=== PATIENT | female | born 1940 | race Two or more races ===

== ENCOUNTER 2018-02-24 18:10 | Inpatient (IN) | payer MEDICARE, MEDICAID ==
[~2018-02-24] VITALS: Ht 154.9 cm; Wt 59.9 kg
--- NOTE | 2018-02-24 18:20 | NUR ---
PATIENT TO ED DUE TO LEFT HIP PAIN SP FALL. PATIENT IS CO 8/10 PAIN. UNABLE TO MOVE LEFT LEG DT PAIN. VSS
[2018-02-24 19:21] LABS: BASOPHILS % (AUTO) 0.5 % (0.0-2.0); EOSINOPHILS % (AUTO) 0.9 % (0.0-6.0); HEMATOCRIT 36 % (33-45); HEMOGLOBIN 11.8 g/dL (11.5-14.8); LYMPHOCYTES # (AUTO) 0.9 /CMM (0.8-4.8); LYMPHOCYTES % (AUTO) 10.6 % (20.0-44.0); MEAN CORPUSCULAR HGB CONC 33 g/dl (31.0-36.0); MEAN CORPUSCULAR VOLUME 79 fL (82-100); MONOCYTES # (AUTO) 0.4 /CMM (0.1-1.30); MONOCYTES % (AUTO) 4.4 % (2.0-12.0); NEUTROPHILS # (AUTO) 7.1 /CMM (1.8-8.9); NEUTROPHILS % (AUTO) 83.6 % (43.0-81.0); PLATELET COUNT (AUTO) 397 /CMM (150-450); RDW COEFFICIENT OF VARIATION 14.4 (11.5-15.0); WHITE BLOOD COUNT (AUTO) 8.5 K/uL (4.3-11.0)
--- NOTE | 2018-02-24 19:30 | NUR ---
CALLED NURSING STEEL WOOL MACHINE OPERATOR AND REQUESTED A MED SURG BED FOR THIS PT.
[2018-02-24 19:32] LABS: CALCIUM, SERUM 9.1 mg/dL (8.5-10.1); CARBON DIOXIDE 28 mmol/L (21-32); CHLORIDE 105 mmol/L (98-107); CREATININE 0.9 mg/dL (0.6-1.3); GLUCOSE 135 mg/dL (74-106); POTASSIUM 3.7 mmol/L (3.5-5.1); SODIUM SERUM 141 mmol/L (136-145); UREA NITROGEN, BLOOD 13 mg/dL (7-18)
[2018-02-24 19:35] LABS: INR 0.97 (0.85-1.15)
--- NOTE | 2018-02-24 19:58 | NUR ---
CALLED [facility] AND A PAGE WAS SENT OUT TO DR ROTH
[2018-02-24 20:00] VITALS: BP 178/86
--- NOTE | 2018-02-24 20:00 | NUR ---
RN NOTES RECEIVED PT. FROM ER WITH DX OF GROUND LEVEL FALL, A/OX4, BENGALI SPEAKING, DAUGHTER AT BEDSIDE, ADMISSION INSTRUCTION WAS GIVEN, CALL LIGHT WITHIN REACH, [id number], CONTINUE TO MONITOR Addendum: 02/25/18 at 0535 by NURY GIFFORD RN RIGHT TIME 2100
--- NOTE | 2018-02-24 20:02 | NUR ---
PT IS ASSIGNED TO MED/SURG RM#: [id number], PT IS DIAGNOSED WITH LEFT HIP FRACTURE, AND DR ROTH IS THE ACCEPTING MD
--- NOTE | 2018-02-24 20:17 | NUR ---
REPORT GIVEN TO PATRICK ARRINGTON FOR TIFFANIE
--- NOTE | 2018-02-24 20:45 | NUR ---
PATIENT TRANSPORTED TO [place]
[2018-02-24] MEDS ORDERED: Z GUARD REMEDY 2 OZ OINT TP PRN (21:00)
[2018-02-24] MEDS ORDERED: MAGNESIUM HYDROXIDE 30 ML UDC PO PRN (21:00)
[2018-02-24] MEDS ORDERED: MAG HYDROX/AL HYDROX/SIMETH 30 ML UDC PO PRN (21:00)
[2018-02-24] MEDS ORDERED: ACETAMINOPHEN 325 MG TABLET PO PRN (21:00)
[2018-02-24] MEDS ORDERED: MORPHINE SULFATE INJ 2 MG/ML DISP.SYRIN IV PRN (21:00)
[2018-02-24] MEDS ORDERED: ZOLPIDEM TARTRATE 5 MG TABLET PO PRN (21:00)
[2018-02-24] MEDS ORDERED: ONDANSETRON HCL/PF 4 MG/2 ML VIAL IVP PRN (21:00)
[2018-02-24] MEDS: HYDROCODONE/APAP 5/325MG 1 EACH TABLET PO PRN (22:40)
--- NOTE | 2018-02-24 22:40 | NUR ---
RN NOTES COMPLANED OF LEFT HIP PAIN0 NOROC 5/325MG PO GIVEN ORDERED, V/S STABLE
[2018-02-24] MEDS: IV NS 0.9% 1,000 ML IV PRN (22:57)
--- NOTE | 2018-02-25 06:10 | NUR ---
RN NOTES NILDA ONEAL, CALLED AND GAVE TELEPHONE ORDER FOR PT TO HAVE A BREAKFAST TODAY AND AND TO GET A CONSENT FOR LEFT HIP SURGERY , ORDER NOTED AND CARRIED OUT
--- NOTE | 2018-02-25 07:00 | NUR ---
RN NOTES AWAKE, DAUGHTER CAME , DENIES PAIN, NO SOB, MORNING CARE RENDERED, CALL LIGHT WITHIN REACH, [id number], PT. NEEDS ATTENDED
--- NOTE | 2018-02-25 07:30 | NUR ---
MS/RN Patient received Patient received from assistant shift supervisor. A/O X4 Lao speaking with a little Danish, daughter at bedside providing further translation. All needs attended, time allowed for all questions and concerns to be addressed. Can eat and drink up to 8a and then NPO for surgery with tentative schedule set for 5p. Call light within reach, will continue to monitor and ensure safety.
[2018-02-25 08:00] VITALS: BP 149/84
--- NOTE | 2018-02-25 08:00 | NUR ---
MS/RN NPO Patient now NPO, for surgery this afternoon at 5p.
[2018-02-25 08:10] VITALS: BP 149/84
[2018-02-25] MEDS ORDERED: CYAN100096 PO (08:47)
[2018-02-25] MEDS ORDERED: MULT-24 PO (08:47)
[2018-02-25] MEDS ORDERED: MAGN64TA13 PO (08:47)
--- NOTE | 2018-02-25 09:45 | NUR ---
MS/RN Consent Patient consented for left hip intramedullary rodding.
[2018-02-25 09:47] LABS: CALCIUM, SERUM 8.3 mg/dL (8.5-10.1); CARBON DIOXIDE 26 mmol/L (21-32); CHLORIDE 108 mmol/L (98-107); CREATININE 0.8 mg/dL (0.6-1.3); GLUCOSE 94 mg/dL (74-106); PHOSPHORUS 3.1 mg/dL (2.5-4.9); POTASSIUM 3.7 mmol/L (3.5-5.1); SODIUM SERUM 143 mmol/L (136-145); UREA NITROGEN, BLOOD 15 mg/dL (7-18)
[2018-02-25 09:49] LABS: IRON, SERUM 50 ug/dl (50-175); THYROID STIMULATING HORMONE 5.012 uIU/mL (0.358-3.74); TOTAL IRON BINDING CAPACITY 317 ug/dl (250-450)
[2018-02-25 09:53] LABS: BASOPHILS % (AUTO) 0.7 % (0.0-2.0); EOSINOPHILS % (AUTO) 5.3 % (0.0-6.0); HEMATOCRIT 31 % (33-45); HEMOGLOBIN 10.5 g/dL (11.5-14.8); LYMPHOCYTES # (AUTO) 1.3 /CMM (0.8-4.8); LYMPHOCYTES % (AUTO) 19.6 % (20.0-44.0); MEAN CORPUSCULAR HGB CONC 34 g/dl (31.0-36.0); MEAN CORPUSCULAR VOLUME 79 fL (82-100); MONOCYTES # (AUTO) 0.6 /CMM (0.1-1.30); NEUTROPHILS # (AUTO) 4.4 /CMM (1.8-8.9); NEUTROPHILS % (AUTO) 65.4 % (43.0-81.0); PLATELET COUNT (AUTO) 351 /CMM (150-450); RDW COEFFICIENT OF VARIATION 13.9 (11.5-15.0); RED BLOOD CELL COUNT(AUTO) 3.96 MIL/uL (4.0-5.2); WHITE BLOOD COUNT (AUTO) 6.7 K/uL (4.3-11.0)
--- NOTE | 2018-02-25 10:00 | NUR ---
MS/RN S/B Dr Rai Seen by Dr Rai - defer neuroimaging for now.
--- NOTE | 2018-02-25 11:12 | NUR ---
MS/RN Refusing surgery Called to room by patient, stating that she now does not want surgery. Feels that her hip is not fractured and all she needs is a heating pad and massage. Dr Landin and Mita Coe paged to inform.
[2018-02-25] MEDS: IV NS 0.9% 1,000 ML IV PRN (12:13)
--- NOTE | 2018-02-25 13:35 | NUR ---
MS/RN S/B Dr Langford Seen by Dr Langford - patient is cleared for any surgical intervention.
[2018-02-25 16:00] VITALS: BP 165/80
--- NOTE | 2018-02-25 17:44 | NUR ---
MS/RN S/B Jarocho Nix Seen by Jarocho - awaiting surgery.
[2018-02-25] MEDS ORDERED: BACITRACIN 50000 UNITS/VIAL ONE ×2 (19:24→20:16)
[2018-02-25] MEDS ORDERED: BUPIVACAINE 0.25% 75 MG/30 ML VIAL ONE (20:17)
[2018-02-25] MEDS ORDERED: KETOROLAC TROMETHAMINE INJ 30 MG/ML VIAL ONE (21:15)
[2018-02-25] MEDS ORDERED: FENTANYL PF 100MCG/2ML AMPUL ONE (21:16)
[2018-02-25] MEDS ORDERED: LABETALOL HCL IV 100MG VIAL ONE (21:26)
[2018-02-25 22:35] VITALS: BP 152/71
--- NOTE | 2018-02-25 22:35 | NUR ---
RN NOTES RECEIVED PT FROM OR, S/P LEFT HIP INTRAMEDULLARY RODDING BY DR. LARA, PT IS A/OX4, HEBREW SPEAKING, DRESSING ON THE LEFT HIP DRY AND INTACT, DENIES PAIN AT THIS TIME, NO SOB, V/S IS STABLE,RESUMED PRE-OPS MEDS PER DR. LARA, ORDER NOTED AND CARRIED OUT, WILL CONTINUE TO MONITOR
[2018-02-25 23:04] VITALS: BP 143/79
--- NOTE | 2018-02-25 23:30 | NUR ---
RN NOTES DAUGHTER EBONY CAME AND STAYED WITH THE PT.
[2018-02-26] MEDS ORDERED: CEFAZOLIN 1 GM ONE (04:56)
[2018-02-26] MEDS ORDERED: D5W IV SCH (05:00)
[2018-02-26] MEDS ORDERED: CEFAZOLIN IV SCH (05:00)
[2018-02-26] MEDS: CEFAZOLIN 1 GM in IV D5W 50 ML IV SCH ×3 (05:20→20:57)
[2018-02-26 06:42] LABS: CARBON DIOXIDE 24 mmol/L (21-32); CHLORIDE 107 mmol/L (98-107); CREATININE 0.7 mg/dL (0.6-1.3); GLUCOSE 149 mg/dL (74-106); SODIUM SERUM 141 mmol/L (136-145); UREA NITROGEN, BLOOD 12 mg/dL (7-18)
[2018-02-26 06:49] LABS: BASOPHILS % (AUTO) 0.4 % (0.0-2.0); EOSINOPHILS % (AUTO) 0.2 % (0.0-6.0); HEMATOCRIT 28 % (33-45); HEMOGLOBIN 9.3 g/dL (11.5-14.8); LYMPHOCYTES # (AUTO) 0.8 /CMM (0.8-4.8); LYMPHOCYTES % (AUTO) 8.7 % (20.0-44.0); MEAN CORPUSCULAR HGB CONC 33 g/dl (31.0-36.0); MEAN CORPUSCULAR VOLUME 80 fL (82-100); MONOCYTES # (AUTO) 0.8 /CMM (0.1-1.30); NEUTROPHILS # (AUTO) 7.6 /CMM (1.8-8.9); NEUTROPHILS % (AUTO) 81.7 % (43.0-81.0); PLATELET COUNT (AUTO) 290 /CMM (150-450); RDW COEFFICIENT OF VARIATION 15.2 (11.5-15.0); RED BLOOD CELL COUNT(AUTO) 3.54 MIL/uL (4.0-5.2); WHITE BLOOD COUNT (AUTO) 9.3 K/uL (4.3-11.0)
--- NOTE | 2018-02-26 07:00 | NUR ---
RN NOTES AWAKE, DENIES PAIN AT THIS TIME, MORNING CARE , DAUGHTER AT BEDSIDE, IV LINE PATENT NO REDNESS OR SWOLLEN, CALL LIGHT WITHIN REACH, [id number], PT. NEEDS ATTENDED
--- NOTE | 2018-02-26 07:20 | NUR ---
RN NOTES PATIENT A/OX4, WELSH SPEAKING, PATIENT FEELS HUNGRY, AND ASSURED HER BREAKFAST WILL BE SERVED SOON. PIV PATENT AND INTACT, FLUSHES WELL. PATIENT DENIES PAIN AT THIS TIME. BREATHING EVEN AND UNLABORED, NO SOB NOTED. NEEDS ATTENDED AND MET, CALL LIGHT WITHIN REACH, WILL CONTINUE TO MONITOR.
[2018-02-26] MEDS: HYDROCODONE/APAP 5/325MG 1 EACH TABLET PO PRN (08:24)
[2018-02-26 08:38] VITALS: BP 121/67
--- NOTE | 2018-02-26 11:00 | NUR ---
RN NOTES PATIENT SEEN BY PHYSICAL THERAPY, PATIENT ABLE TO TOLERATE THERAPY AND WALKED WITH A WALKER WITH NO COMPLAINTS.
--- NOTE | 2018-02-26 15:30 | NUR ---
RN NOTES PATIENT SEEN BY NILDA CASE, NO NEW ORDERS NOTED. PATIENT IS IN NO DISTRESS, DENIES PAIN OR DISCOMFORT, ASSISTED WITH ADLS, TURNED AND REPOSITIONED PATIENT PERMITS, NEEDS ATTENDED AND MET, CALL LIGHT WITHIN REACH, WILL CONTINUE TO MONITOR.
[2018-02-26 16:13] VITALS: BP 107/71
--- NOTE | 2018-02-26 19:00 | NUR ---
MS RN NOTES RECEIVE PT IN BED A/O X3 , NO S/S OF DISTRESS, STABLE, SAFETY MEASURES IN PLACE, CALL LIGHT WITHIN REACH, WILL CONTINUE TO MONITOR
--- NOTE | 2018-02-26 19:17 | NUR ---
RN NOTES PATIENT A/OX3, BREATHING EVEN AND UNLABORED, NO SOB NOTED, IN ROOM AIR WITH SPO2 98%. PATIENT ASSISTED WITH TURNING AND REPOSITIONING, SKIN KEPT CLEAN AND DRY, DENIES PAIN AT THIS TIME, NEEDS ATTENDED AND MET. CALL LIGHT WITHIN REACH, WILL ENDORSE TO HAT FORMING MACHINE OPERATOR FOR TIFFANIE.
[2018-02-26 20:00] VITALS: BP 123/61
[2018-02-26] MEDS: ENOXAPARIN SODIUM 40 MG/0.4 ML DISP.SYRIN SQ SCH (20:58)
[2018-02-26] MEDS ORDERED: ENOXAPARIN SODIUM 40 MG/0.4 ML DISP.SYRIN SQ SCH (22:30)
[2018-02-27] VITALS (8 sets, daily range): BP systolic 98–131; BP diastolic 56–90
[2018-02-27 06:35] LABS: BASOPHILS % (AUTO) 0.6 % (0.0-2.0); EOSINOPHILS % (AUTO) 3.2 % (0.0-6.0); HEMATOCRIT 26 % (33-45); HEMOGLOBIN 8.4 g/dL (11.5-14.8); LYMPHOCYTES # (AUTO) 1.8 /CMM (0.8-4.8); MEAN CORPUSCULAR HGB CONC 33 g/dl (31.0-36.0); MEAN CORPUSCULAR VOLUME 80 fL (82-100); MONOCYTES # (AUTO) 0.9 /CMM (0.1-1.30); MONOCYTES % (AUTO) 11.4 % (2.0-12.0); NEUTROPHILS # (AUTO) 4.9 /CMM (1.8-8.9); NEUTROPHILS % (AUTO) 61.8 % (43.0-81.0); PLATELET COUNT (AUTO) 290 /CMM (150-450); RDW COEFFICIENT OF VARIATION 15.2 (11.5-15.0); RED BLOOD CELL COUNT(AUTO) 3.23 MIL/uL (4.0-5.2); WHITE BLOOD COUNT (AUTO) 7.9 K/uL (4.3-11.0)
--- NOTE | 2018-02-27 06:35 | NUR ---
MS RN NOTES PT ASLEEP COMFORTABLY IN BED AND EASILY AWAKEN HEAD OF BED ELEVATED FOR BETTER LUNG EXPANSION AND GOOD CIRCULATION. TOLERATING ROOM AIR 98% NOT IN RESPIRATORY DISTRESS. STABLE CONDITION. NO ACUTE CHANGES THROUGHOUT THE SHIFT. PT ASSISTED REPOSITION AND TURNING. PT KEPT CLEAN AND DRY AND COMFORT. NURSING CARE RENDERED. NEEDS ATTENDED AND ANTICIPATED. ON LOW BED TO ENSURE SAFETY, CALL LIGHT WITHIN REACH, WILL ENDORSE TO THE NEXT SHIFT CONTINUE PLAN OF CARE
[2018-02-27 06:49] LABS: CALCIUM, SERUM 7.7 mg/dL (8.5-10.1); CARBON DIOXIDE 25 mmol/L (21-32); CHLORIDE 108 mmol/L (98-107); CREATININE 0.8 mg/dL (0.6-1.3); GLUCOSE 108 mg/dL (74-106); POTASSIUM 4.1 mmol/L (3.5-5.1); SODIUM SERUM 141 mmol/L (136-145); UREA NITROGEN, BLOOD 16 mg/dL (7-18)
--- NOTE | 2018-02-27 07:15 | NUR ---
ms rn initial notes Received patient in bed, awake, head of bed elevated, no SOB or distress noted, on 02 @ 2lpm via NC and tolerated well. Alert and oriented x 4, verbally responsive and and able to make needs known. IV intact and patent. Surgical dressing intact, no drainage noted. Call light with in patient reach, will continue to monitor accordingly.
[2018-02-27] MEDS: FERROUS SULFATE (325 MG) 325 MG/TAB TABLET PO SCH (16:28)
--- NOTE | 2018-02-27 16:54 | NUR ---
ms rn notes Blood transfusion finished with no signs and symptoms of adverse reaction noted. Vital signs checked and recorded. Will continue to monitor.
--- NOTE | 2018-02-27 19:00 | NUR ---
MS RN NOTES RECEIVE PT IN BED A/O X 4, TOLERATING ROOM AIR 98%. NO S/S OF DISTRESS, STABLE, SAFETY MEASURES IN PLACE, CALL LIGHT WITHIN REACH, WILL CONTINUE TO MONITOR
--- NOTE | 2018-02-27 19:14 | NUR ---
ms rn closing notes All needs provided, attended, and anticipated. Patient in stable condition. Endorsed to next shift RN to continue care.
[2018-02-27] MEDS: ENOXAPARIN SODIUM 40 MG/0.4 ML DISP.SYRIN SQ SCH (21:20)
--- NOTE | 2018-02-28 06:34 | NUR ---
MS RN NOTES PT IN BED NOT IN DISTRESS AM CARE PROVIDED. TOLERATING ROOM AIR 99%. STABLE CONDITION. NO ACUTE CHANGES THROUGHOUT THE SHIFT. KEPT CLEAN AND DRY AND COMFORT. NURSING CARE RENDERED. NEEDS ATTENDED AND ANTICIPATED. ASSISTED REPOSITION EVERY 2 HOURS. ON LOW BED TO ENSURE SAFETY, CALL LIGHT WITHIN REACH, WILL ENDORSE TO THE NEXT SHIFT CONTINUE PLAN OF CARE
--- NOTE | 2018-02-28 07:20 | NUR ---
ms rn initial notes Received patient in bed, awake, head of bed elevated, no SOB or distress noted, on room air and tolerated well. IV intact and patent, HL only. Patient is alert and oriented x 3, verbally responsive and able to make needs known. No complaint of pain or discomfort at this time. Call light with in patient reach, will continue to monitor accordingly.
[2018-02-28 08:00] VITALS: BP 106/62
[2018-02-28 08:27] LABS: BASOPHILS # (AUTO) 0.1 /CMM (0.0-0.2); BASOPHILS % (AUTO) 0.6 % (0.0-2.0); HEMATOCRIT 28 % (33-45); HEMOGLOBIN 9.1 g/dL (11.5-14.8); LYMPHOCYTES # (AUTO) 1.9 /CMM (0.8-4.8); LYMPHOCYTES % (AUTO) 22.6 % (20.0-44.0); MEAN CORPUSCULAR HGB CONC 32 g/dl (31.0-36.0); MEAN CORPUSCULAR VOLUME 81 fL (82-100); MONOCYTES # (AUTO) 1.1 /CMM (0.1-1.30); MONOCYTES % (AUTO) 12.6 % (2.0-12.0); NEUTROPHILS # (AUTO) 5.1 /CMM (1.8-8.9); NEUTROPHILS % (AUTO) 60.2 % (43.0-81.0); PLATELET COUNT (AUTO) 284 /CMM (150-450); RED BLOOD CELL COUNT(AUTO) 3.49 MIL/uL (4.0-5.2); WHITE BLOOD COUNT (AUTO) 8.5 K/uL (4.3-11.0)
[2018-02-28] MEDS: FERROUS SULFATE (325 MG) 325 MG/TAB TABLET PO SCH ×2 (08:34→16:25)
[2018-02-28] MEDS ORDERED: FENTANYL PF 100MCG/2ML AMPUL IV PRN (12:00)
[2018-02-28 15:48] VITALS: BP 117/63
--- NOTE | 2018-02-28 19:22 | NUR ---
ms rn closing notes All needs provided, attended, and anticipated, patient is in stable condition, endorsed to next shift RN to continue care. Call light with in patient reach.
--- NOTE | 2018-02-28 19:30 | NUR ---
RN NOTES RECEIVED PATIENT IN BED AWAKE, AO X 3, ABLE TO MAKE NEEDS KNOWN. NO ACUTE DISTRESS NOTED. IV SITE PATENT, INTACT; FLUSHED. LEFT SURGICAL INCISIONS INTACT; DRESSINGS INTACT; SAFETY REMINDERS GIVEN. ON LOW BED WITH BILATERAL UPPER SIDE RAILS UP. CALL BARAJAS WITHIN EASY REACH. WILL CONTINUE TO MONITOR.
[2018-02-28 19:54] VITALS: BP 118/59
[2018-02-28] MEDS: ENOXAPARIN SODIUM 40 MG/0.4 ML DISP.SYRIN SQ SCH (20:57)
[2018-02-28 22:00] VITALS: BP 118/59
--- NOTE | 2018-03-01 06:02 | NUR ---
RN NOTES PATIENT ASLEEP, EASILY AROUSABLE. RESPIRATIONS EVEN. NO SIGNS OF PAIN NOTED. DUE MEDS GIVEN WITH NO ASE NOTED. NEEDS ATTENDED. KEPT CLEAN, DRY, AND COMFORTABLE. SAFETY PRECAUTIONS AND COMFORT MEASURES IN PLACE. WILL GIVE REPORT TO DAY SHIFT FOR CONTINUITY OF CARE.
[2018-03-01 08:08] VITALS: BP 103/55
[2018-03-01 08:08] LABS: BASOPHILS % (AUTO) 0.7 % (0.0-2.0); EOSINOPHILS % (AUTO) 5.4 % (0.0-6.0); HEMATOCRIT 27 % (33-45); HEMOGLOBIN 8.9 g/dL (11.5-14.8); LYMPHOCYTES # (AUTO) 1.6 /CMM (0.8-4.8); LYMPHOCYTES % (AUTO) 25.5 % (20.0-44.0); MEAN CORPUSCULAR HGB CONC 33 g/dl (31.0-36.0); MEAN CORPUSCULAR VOLUME 81 fL (82-100); MONOCYTES # (AUTO) 0.7 /CMM (0.1-1.30); MONOCYTES % (AUTO) 11.7 % (2.0-12.0); NEUTROPHILS # (AUTO) 3.6 /CMM (1.8-8.9); NEUTROPHILS % (AUTO) 56.7 % (43.0-81.0); PLATELET COUNT (AUTO) 300 /CMM (150-450); RED BLOOD CELL COUNT(AUTO) 3.38 MIL/uL (4.0-5.2); WHITE BLOOD COUNT (AUTO) 6.4 K/uL (4.3-11.0)
[2018-03-01] MEDS: FERROUS SULFATE (325 MG) 325 MG/TAB TABLET PO SCH ×2 (08:16→16:30)
[2018-03-01 09:00] VITALS: BP 103/55
[2018-03-01 16:00] VITALS: BP 129/71
--- NOTE | 2018-03-01 19:10 | NUR ---
RN INITIAL NOTES: RECEIVED REPORT FROM EMILE NGUYEN, PT IN BED, AWAKE, A/O X3 [place] SPEAKING UNDERSTAND BASIC POLISH, DENIES ANY PAIN OR DISCOMFORT AT THIS TIME, IV ACCESS PATENT AND FLUSHING WELL ON HL. S/P LEFT HIP INTRAMEDULLARY RODDING WITH DR LARA 02/25/18, LEFT HIP DRESSING CLEAN DRY AND INTACT6 NO ACTIVE BLEEDING NOTED, SAFETY PRECAUTIONS FOR FALL INITIATED CALL LIGHT IN REACH WILL CONTINUE TO MONITOR
--- NOTE | 2018-03-01 19:15 | NUR ---
RN NOTES: PER DAY RN REPORT, AWARE THAT PT WILL NOT BE GOING TO [facility] TODAY, BUT INSTEAD TOMORROW PER CASE MANAGEMENT.
[2018-03-01 19:43] VITALS: BP 110/54
[2018-03-01 20:00] VITALS: BP 110/54
--- NOTE | 2018-03-01 20:21 | NUR ---
RN NOTES: SPOKED WITH COMPOSITION TILE LAYER MD RELAYED SITUATION, PER MD OKAY TO STAY FOR TONIGHT, FOR DC TO [facility] IN AM
[2018-03-01] MEDS: ENOXAPARIN SODIUM 40 MG/0.4 ML DISP.SYRIN SQ SCH (21:00)
--- NOTE | 2018-03-01 21:56 | NUR ---
NON ADMINISTRATION OF LOVENOX: PT HAS SCHEDULE LOVENOX AT 2100, HGB 8.9, THERE'S AN INSTRUCTION ON THE BOTTOM OF THE MEDICATION IN EMAR STATING TO GIVE IF HGB >9, NOT GIVEN AT THIS TIME, HGB 8.9
--- NOTE | 2018-03-02 06:41 | NUR ---
RN CLOSING NOTES: PT IN BED, AWAKE, DENIES ANY POST OP PAIN THROUGHOUT THE SHIFT. LEFT HIP DRESSING REMAINS C/D/I NO ACTIVE BLEEDING NOTED. PT FOR DC TO [facility] TODAY, EXIT CARE COMPLETED, AWAITING FOR CM TO CALL FOR ESTIMATED TIME OF SCIENTIFIC ARTIST BY AMBULANCE, PT'S DAUGHTER CORIE REQUESTING TO BE NOTIFIED AN HOUR BEFORE PT'S SCIENTIFIC ARTIST TIME, EVERYTHING WILL BE RELAY TO DAY RN. VS REMAINS STABLE, NEEDS ATTENDED, SAFETY PRECAUTIONS FOR FALL REMAINS ENGAGED, CALL LIGHT IN REACH, WILL ENDORSE TO DAY RN FOR TIFFANIE.
--- NOTE | 2018-03-02 07:10 | NUR ---
MS/RN OPENING NOTE PATIENT IS RECEIVED IN BED AWAKE. ALERT AND ORIENTED X3. RESPIRATION REGULAR AND UNLABORED. DENIES SOB. DENIES PAIN. LEFT HIP DRESSING INTACT AND DRY. NO S/S INFECTION AND NO BLEEDING NOTED. RFA G 24 SALINE LOCKED. BED LOW AND LOCKED. SIDE RAILS UP X3. CALL LIGHT WITHIN REACH. WILL CONTINUE TO MONITOR.
[2018-03-02 08:00] VITALS: BP 109/64
[2018-03-02] MEDS: FERROUS SULFATE (325 MG) 325 MG/TAB TABLET PO SCH ×2 (08:27→16:26)
[2018-03-02 16:00] VITALS: BP 105/73
[2018-03-02] MEDS: HYDROCODONE/APAP 5/325MG 1 EACH TABLET PO PRN (16:27)
--- NOTE | 2018-03-02 16:51 | NUR ---
MS/RN CLOSING NOTE PATIENT ALERT AND ORIENTED X4. DENIES SOB. RESPIRATION REGULAR AND UNLABORED. DISCHARGE INSTRUCTIONS GIVEN TO THE RESIDENT AND SHE VERBALIZED UNDERSTANDING. REPORT GIVEN TO THE RECEIVING NURSE KOBY. PATIENT IS PICKED UP ON A GURNEY AND BY THE ARRANGED AMBULANCE. PATIENT LEFT THE HOSPITAL IN STABLE CONDITION.
== END 2018-03-02 16:00 | DRG 481 ==
LOC: ER 18:12 → EDBD 18:12 → MEDSG2 20:34
PROVIDERS: ADMIT Internal Medicine; ATTEND Internal Medicine
PROC: 0QS706Z Reposition Left Upper Femur with Intramedullary Internal Fixation Device, Open Approach (ICD-10-PCS; principal; 2018-02-25 20:14)
PROC: 30233N1 Transfusion of Nonautologous Red Blood Cells into Peripheral Vein, Percutaneous Approach (ICD-10-PCS; 2018-02-27)
DX: M80.052A Age-related osteoporosis with current pathological fracture, left femur, initial encounter for fracture (principal); Q85.9 Phakomatosis, unspecified; D64.9 Anemia, unspecified; D50.0 Iron deficiency anemia secondary to blood loss (chronic); J44.9 Chronic obstructive pulmonary disease, unspecified; W18.30XA Fall on same level, unspecified, initial encounter; I70.90 Unspecified atherosclerosis; E78.5 Hyperlipidemia, unspecified; K21.9 Gastro-esophageal reflux disease without esophagitis; R91.1 Solitary pulmonary nodule; Y92.89 Other specified places as the place of occurrence of the external cause; I10 Essential (primary) hypertension; E03.9 Hypothyroidism, unspecified; K44.9 Diaphragmatic hernia without obstruction or gangrene
CPT/HCPCS: 36415; 71045-TC; 71250-TC; 73020; 73502; 80048-TC; 82728-TC; 82746; 83540-TC; 83735-TC; 84100-TC; 84439-TC; 84443-TC; 84480; 85025-TC; 85730-TC; 86850-TC; 86921-TC; 87081-TC; 93307-TC; 97116-TC; 97530-TC; A4606; A6209; A6402; C1713; J0690; J1100; J1650; J1885; J2405; J2704; J3010; J3490; J7030; J7050; J7060; P9016-BL; Z7610

== ENCOUNTER 2018-03-25 12:15 | Outpatient (CLI) | payer MEDICARE, MEDICAID ==
[~2018-03-25 12:15] MED LIST: CYAN100096 PO; MAGN64TA13 PO; MULT-24 PO
[2018-03-25 12:25] VITALS: BP 118/61
== END 2018-03-25 23:59 | disposition home health service (06) ==
LOC: MSC 12:15
PROVIDERS: ATTEND Internal Medicine
DX: S72.002D Fracture of unspecified part of neck of left femur, subsequent encounter for closed fracture with routine healing (principal); X58.XXXD Exposure to other specified factors, subsequent encounter; Y92.89 Other specified places as the place of occurrence of the external cause; Z96.89 Presence of other specified functional implants; M81.0 Age-related osteoporosis without current pathological fracture; K21.9 Gastro-esophageal reflux disease without esophagitis; D50.9 Iron deficiency anemia, unspecified

== ENCOUNTER 2018-04-26 09:49 | Outpatient (CLI) | payer MEDICARE, MEDICAID ==
[2018-04-26 10:39] LABS: BASOPHILS % (AUTO) 0.8 % (0.0-2.0); EOSINOPHILS % (AUTO) 3.8 % (0.0-6.0); HEMATOCRIT 35 % (33-45); HEMOGLOBIN 11.1 g/dL (11.5-14.8); LYMPHOCYTES # (AUTO) 2.1 /CMM (0.8-4.8); LYMPHOCYTES % (AUTO) 36.9 % (20.0-44.0); MEAN CORPUSCULAR HGB CONC 32 g/dl (31.0-36.0); MEAN CORPUSCULAR VOLUME 84 fL (82-100); MONOCYTES # (AUTO) 0.7 /CMM (0.1-1.30); MONOCYTES % (AUTO) 11.9 % (2.0-12.0); NEUTROPHILS # (AUTO) 2.6 /CMM (1.8-8.9); NEUTROPHILS % (AUTO) 46.6 % (43.0-81.0); PLATELET COUNT (AUTO) 341 /CMM (150-450); RDW COEFFICIENT OF VARIATION 16.9 (11.5-15.0); RED BLOOD CELL COUNT(AUTO) 4.11 MIL/uL (4.0-5.2); WHITE BLOOD COUNT (AUTO) 5.6 K/uL (4.3-11.0)
[2018-04-26 10:40] LABS: APPEARANCE,URINE CLEAR (CLEAR); BILIRUBIN,URINE NEGATIVE (NEGATIVE); BLOOD, URINE NEGATIVE Ery/uL (NEGATIVE); COLOR,URINE YELLOW (YELLOW); KETONES,URINE NEGATIVE (NEGATIVE); LEUKOCYTE ESTERASE ,URINE NEGATIVE (NEGATIVE); NITRITE, URINE NEGATIVE (NEGATIVE); PROTEIN,URINE NEGATIVE (NEGATIVE); UGLUCOSE NEGATIVE (NEGATIVE); UROBILINOGEN,URINE 0.2 EU/dL (0.2)
[2018-04-26 10:56] LABS: ALANINE AMINOTRANSFERASE 20 U/L (12-78); ALKALINE PHOSPHATASE 81 U/L (46-116); ASPARTATE AMINOTRANSFERASE 19 U/L (15-37); BILIRUBIN,DIRECT 0.1 mg/dL (0.0-0.2); BILIRUBIN,TOTAL 0.6 mg/dL (0.2-1.0); CALCIUM, SERUM 8.7 mg/dL (8.5-10.1); CARBON DIOXIDE 28 mmol/L (21-32); CHLORIDE 107 mmol/L (98-107); CREATININE 0.8 mg/dL (0.6-1.3); GLUCOSE 88 mg/dL (74-106); POTASSIUM 4.5 mmol/L (3.5-5.1); SODIUM SERUM 142 mmol/L (136-145); TOTAL PROTEIN, SERUM 7.2 g/dL (6.4-8.2); UREA NITROGEN, BLOOD 7 mg/dL (7-18)
[2018-04-26 11:03] LABS: CHOLESTEROL 157 mg/dL (<200); HDL CHOLESTEROL 41 mg/dL (40-60); LDL 101 mg/dL (0-99); THYROID STIMULATING HORMONE 7.143 uIU/mL (0.358-3.74); TRIGLYCERIDES 112 mg/dL (30-150)
[2018-04-26 11:20] LABS: IRON, SERUM 26 ug/dl (50-175); TOTAL IRON BINDING CAPACITY 305 ug/dl (250-450)
== END 2018-04-26 23:59 | disposition home or self-care (01) ==
LOC: LAB 09:49
PROVIDERS: ATTEND Internal Medicine
DX: Z00.00 Encounter for general adult medical examination without abnormal findings (principal); N39.0 Urinary tract infection, site not specified; E78.5 Hyperlipidemia, unspecified; I10 Essential (primary) hypertension; E03.9 Hypothyroidism, unspecified
CPT/HCPCS: 36415; 80048-TC; 80061-TC; 80076-TC; 81000-TC; 82728-TC; 82746; 83540-TC; 84439-TC; 84443-TC; 85025-TC

== ENCOUNTER 2018-05-03 10:02 | Outpatient (CLI) | payer MEDICARE, MEDICAID ==
[2018-05-03 10:15] VITALS: BP 132/68
== END 2018-05-03 23:59 | disposition home or self-care (01) ==
LOC: MSC 10:02
PROVIDERS: ATTEND Internal Medicine
DX: S72.002D Fracture of unspecified part of neck of left femur, subsequent encounter for closed fracture with routine healing (principal); X58.XXXD Exposure to other specified factors, subsequent encounter; Z97.8 Presence of other specified devices; M81.0 Age-related osteoporosis without current pathological fracture; E53.8 Deficiency of other specified B group vitamins; D50.9 Iron deficiency anemia, unspecified; M17.11 Unilateral primary osteoarthritis, right knee; K21.9 Gastro-esophageal reflux disease without esophagitis

== ENCOUNTER 2018-07-13 11:48 | Emergency (ER) | payer MEDICARE, MEDICAID ==
[~2018-07-13] VITALS: Ht 157.5 cm; Wt 49.9 kg
[2018-07-13 13:18] LABS: BASOPHILS % (AUTO) 0.7 % (0.0-2.0); EOSINOPHILS % (AUTO) 3.2 % (0.0-6.0); HEMATOCRIT 33 % (33-45); HEMOGLOBIN 10.4 g/dL (11.5-14.8); LYMPHOCYTES # (AUTO) 1.8 /CMM (0.8-4.8); LYMPHOCYTES % (AUTO) 36.4 % (20.0-44.0); MEAN CORPUSCULAR HEMOGLOBIN 25 PG (26.0-33.0); MEAN CORPUSCULAR HGB CONC 32 g/dl (31.0-36.0); MEAN CORPUSCULAR VOLUME 79 fL (82-100); MONOCYTES # (AUTO) 0.5 /CMM (0.1-1.30); MONOCYTES % (AUTO) 10.5 % (2.0-12.0); NEUTROPHILS # (AUTO) 2.5 /CMM (1.8-8.9); NEUTROPHILS % (AUTO) 49.2 % (43.0-81.0); PLATELET COUNT (AUTO) 418 /CMM (150-450); RDW COEFFICIENT OF VARIATION 15.4 (11.5-15.0); RED BLOOD CELL COUNT(AUTO) 4.14 MIL/uL (4.0-5.2)
[2018-07-13 13:21] LABS: CALCIUM, SERUM 9.3 mg/dL (8.5-10.1); CARBON DIOXIDE 28 mmol/L (21-32); CHLORIDE 106 mmol/L (98-107); CREATININE 0.9 mg/dL (0.6-1.3); GLUCOSE 89 mg/dL (74-106); POTASSIUM 3.9 mmol/L (3.5-5.1); SODIUM SERUM 140 mmol/L (136-145); UREA NITROGEN, BLOOD 8 mg/dL (7-18)
[2018-07-13 13:26] LABS: INR 0.97 (0.85-1.15)
[2018-07-13 13:27] LABS: ALANINE AMINOTRANSFERASE 13 U/L (12-78); ALBUMIN 3.4 g/dL (3.4-5.0); ALKALINE PHOSPHATASE 81 U/L (46-116); ASPARTATE AMINOTRANSFERASE 16 U/L (15-37); BILIRUBIN,DIRECT 0.1 mg/dL (0.0-0.2); BILIRUBIN,TOTAL 0.6 mg/dL (0.2-1.0); TOTAL PROTEIN, SERUM 7.8 g/dL (6.4-8.2)
--- NOTE | 2018-07-13 13:30 | NUR ---
PT CAME IN WITH C/O LEFT ANKLE SWELLING. SEEN BY MD FOR EVAL. VSS. SAFETY AND COMFORT MEASURES PROVIDED. WILL MONITOR.
--- NOTE | 2018-07-13 14:15 | NUR ---
Patient discharged to home in stable condition. Written and verbal after care instructions given. Patient verbalizes understanding of instruction.
[2018-07-13 14:20] VITALS: BP 131/85
== END 2018-07-13 14:21 | disposition home or self-care (01) ==
LOC: ER 11:55
DX: R60.0 Localized edema (principal); D64.9 Anemia, unspecified; Z98.890 Other specified postprocedural states; Z79.899 Other long term (current) drug therapy
CPT/HCPCS: 36415; 80048; 80076; 85025; 85730; 93971; 99285; A4606; Z7610

== ENCOUNTER 2020-06-06 21:00 | Emergency (ER) | payer MEDICARE, OTHER ==
[~2020-06-06] VITALS: Ht 162.6 cm; Wt 61.7 kg
--- NOTE | 2020-06-06 21:15 | NUR ---
BIB DAUGHTER FOR C/O RED PATCHES ALL OVER HER BODY. PER DAUGHTER THE REDNESS STARTED FROM THE FEET AND PROGRESSED TOWARD UPPER SIDE OF HER BODY. +ITCHINESS. PT DENIED ANY OTHER ALLERGIC SYMPTOMS SUCH SOB, ...PT IS PLACED ON A MONITOR.
--- NOTE | 2020-06-06 21:35 | NUR ---
Patient discharged to home in stable condition. Rx and Written and verbal after care instructions given. Patient verbalizes understanding of instruction.
[2020-06-06 23:39] VITALS: BP 168/88
== END 2020-06-06 21:35 | disposition home or self-care (01) ==
LOC: ER 21:00
DX: L51.8 Other erythema multiforme (principal); Z96.642 Presence of left artificial hip joint; Z79.899 Other long term (current) drug therapy

== ENCOUNTER 2020-07-09 10:20 | Outpatient (CLI) | payer MEDICARE, OTHER ==
[2020-07-09 12:14] LABS: EOSINOPHILS % (AUTO) 3.2 % (0.0-6.0); HEMATOCRIT 32 % (33-45); HEMOGLOBIN 9.8 g/dL (11.5-14.8); LYMPHOCYTES # (AUTO) 1.4 /CMM (0.8-4.8); MEAN CORPUSCULAR HGB CONC 31 g/dl (31.0-36.0); MEAN CORPUSCULAR VOLUME 75 fL (82-100); MONOCYTES # (AUTO) 0.4 /CMM (0.1-1.30); MONOCYTES % (AUTO) 9.3 % (2.0-12.0); NEUTROPHILS # (AUTO) 2.3 /CMM (1.8-8.9); NEUTROPHILS % (AUTO) 53.5 % (43.0-81.0); PLATELET COUNT (AUTO) 372 /CMM (150-450); RED BLOOD CELL COUNT(AUTO) 4.23 MIL/uL (4.0-5.2); WHITE BLOOD COUNT (AUTO) 4.4 K/uL (4.3-11.0)
[2020-07-09 12:18] LABS: APPEARANCE,URINE CLEAR (CLEAR); BILIRUBIN,URINE NEGATIVE (NEGATIVE); BLOOD, URINE NEGATIVE Ery/uL (NEGATIVE); COLOR,URINE YELLOW (YELLOW); KETONES,URINE NEGATIVE (NEGATIVE); LEUKOCYTE ESTERASE ,URINE TRACE (NEGATIVE); NITRITE, URINE NEGATIVE (NEGATIVE); PH,URINE 6.5 (5.0-8.0); PROTEIN,URINE NEGATIVE (NEGATIVE); UGLUCOSE NEGATIVE (NEGATIVE); UROBILINOGEN,URINE 0.2 EU/dL (0.2)
[2020-07-09 12:56] LABS: BACTERIA,URINE None seen /HPF (None Seen); RBC,URINE 0-2 /HPF (0-2); SQUAMOUS EPITHELIAL CELL,UR Few /HPF (None Seen)
[2020-07-09 13:26] LABS: ALBUMIN 3.1 g/dL (3.4-5.0); BILIRUBIN,DIRECT 0.1 mg/dL (0.0-0.2); BILIRUBIN,TOTAL 0.9 mg/dL (0.2-1.0); CALCIUM, SERUM 8.8 mg/dL (8.5-10.1); CREATININE 0.8 mg/dL (0.6-1.3); POTASSIUM 4.1 mmol/L (3.5-5.1); TOTAL PROTEIN, SERUM 7.5 g/dL (6.4-8.2)
[2020-07-09 13:32] LABS: THYROID STIMULATING HORMONE 6.642 uIU/mL (0.358-3.74)
== END 2020-07-09 23:59 | disposition home or self-care (01) ==
LOC: MSC 10:20
PROVIDERS: ATTEND Internal Medicine
DX: L51.9 Erythema multiforme, unspecified (principal); M81.0 Age-related osteoporosis without current pathological fracture; E53.8 Deficiency of other specified B group vitamins; D50.9 Iron deficiency anemia, unspecified; M17.11 Unilateral primary osteoarthritis, right knee; K21.9 Gastro-esophageal reflux disease without esophagitis; Z87.81 Personal history of (healed) traumatic fracture
CPT/HCPCS: 36415; 80048; 80061; 80076; 81001; 82728; 83036; 83540; 84439; 84443; 85025; G0463; 81000-TC